=== PATIENT | male | born 1950 | race Caucasian/White ===

== ENCOUNTER → 2018-10-17 | Outpatient (CLI) | payer BC ==
--- NOTE | 2018-10-17 16:27 | PCVCIMAG ---
EXAM: BILATERAL CAROTID DUPLEX INDICATION: Carotid Occlusive Disease. FINDINGS: Doppler Measurements (centimeters per second): RIGHT: Peak CCA-136, Peak ECA-96, Diastolic ICA-26, Peak ICA-93, ICA/CCA Ratio-0.7. LEFT: Peak CCA-141, Peak ECA-176, Diastolic ICA-26, Peak ICA-79, ICA/CCA Ratio-0.6. RIGHT CAROTID: The carotid bulb has minimal plaque. The proximal internal carotid artery shows no significant stenosis. The common carotid artery shows no significant stenosis. The external carotid artery shows no significant stenosis. LEFT CAROTID: The carotid bulb has minimal plaque. The proximal internal carotid artery shows no significant stenosis. The common carotid artery shows no significant stenosis. The external carotid artery shows 40% stenosis. Antegrade flow in both vertebral arteries. IMPRESSION: No significant stenosis of the right internal carotid artery with minimal plaque. No significant stenosis of the left internal carotid artery with minimal plaque. LOC:[place] [id number]
--- NOTE | 2018-10-18 10:43 | PCVCIMAG ---
APPROVED REPORT Study performed: 10/17/2018 15:44:40 Exam: Dobutamine Stress Echo Indication: Palpitations elevated coronary calcium score,sob, cp Patient Location: Echo lab Stress Nurse: Yesenia Leblanc RN Room #: 2 Status: routine Ht: 6 ft 1 in HR: 55 bpm BP: 150/84 mmHg Rhythm: NSR Medical History Pretest Chest Pain Characteristics: No chest pain Exercise History: Physically active Procedure The patient underwent an Exercise Stress Test using the Keagan Protocol. Blood pressure, heart rate, and EKG were monitored. An Echocardiogram was performed by certified veterinary technician in four stages in quad fashion. At peak stress, four selected images were obtained and placed side by side with resting images for comparison. Stress Test Details Stress Test: Exercise stress testing was performed using a Keagan protocol. HR Resting HR: 55 bpmMax Heart Rate (APMHR): 154 bpm Max HR Achieved: 153 bpmTarget HR (85% APMHR): 130 bpm % of APMHR: 99 Recovery HR: 88 bpm HR response to stress: Normal HR response to stress BP Resting BP: 150/84 mmHg Max BP: 212/92 mmHg Recovery BP: 154/80 mmHg BP response to stress: Mildly hypertensive response to stress. ECG Resting ECG: Sinus Rhythm Stress ECG: Sinus Rhythm ST Change: Non-ischemic Maximum ST Deviation: -0.45 mm Arrhythmia: Rare PVC,PAC Recovery ECG: Sinus Rhythm Recovery ST Change: Non-ischemic Recovery ST Deviation: -0.30 mm Recovery Arrhythmia: Rare PVC,PAC Clinical Reason for Termination: Maximal effort Stress Symptoms: none Exercise duration: 15 min 52 sec Highest Stage Achieved: Stage 6: 5.5 mph at 20% grade. Exercise capacity: 20.2 METs Overall Exercise Capacity for Age: Excellent Scale: Active Angina Score: None No complications. Stress ECG Conclusion The patient exercised according to the KEAGAN protocol for 15:52 mins; achieving a work level of 20.20METS. The resting heart rate of 55 bpm britney to a maximum heart rate of 160 bpm. This value represent 103% of the maximal, age-predicted heart rate. The resting blood pressure of 150/84 mmHg, britney to a maximum blood pressure of 212/92 mmHg. The exercise test was stopped due to fatigue. Munoz Treadmill Score is 17.3 which is Low risk. Pre-Stress Echo The resting Echocardiogram showed normal left ventricular contractility with an estimated Ejection Fraction of about 55-60%. Normal wall motion in all segments on baseline images. Post-Stress Echo The stress Echocardiogram showed normal left ventricular contractility with an estimated Ejection Fraction of about 65-70%. Normal augmentation of wall motion in all segments on post stress images. Clinical No clinical or ECG evidence for ischemia. Conclusion Clinical Response: Non-ischemic Exercise Capacity: Superior Stress ECG Response: Non-ischemic Stress Echo Images: Non-ischemic No clinical, EKG or echocardiographic evidence for ischemia. No echocardiographic evidence for exercise induced ischemia. Normal stress echocardiogram with maximal exercise stress. <Conclusion> No clinical, EKG or echocardiographic evidence for ischemia. No echocardiographic evidence for exercise induced ischemia. Normal stress echocardiogram with maximal exercise stress.
== END | disposition home or self-care (01) ==
LOC: PCVCIMAG 14:17
PROVIDERS: ATTEND Internal Medicine Cardiovascular Disease
DX: R09.89 Other specified symptoms and signs involving the circulatory and respiratory systems (principal); I25.10 Atherosclerotic heart disease of native coronary artery without angina pectoris; R00.2 Palpitations; R93.1 Abnormal findings on diagnostic imaging of heart and coronary circulation; R06.02 Shortness of breath; R07.9 Chest pain, unspecified
CPT/HCPCS: 93325; 93351; 93880